=== PATIENT | female | born 1960 | race Two or more races ===

== ENCOUNTER 2021-12-02 14:41 | Emergency (ER) | payer SELFPAY ==
[2021-12-02] MEDS ORDERED: Sodium Chloride 0.9% 10 ML Syringe FLUSH PRN (15:15)
[2021-12-02] MEDS ORDERED: Aspirin 81 MG Tab.Chew PO ONE (15:15)
[2021-12-02] MEDS ORDERED: Ketorolac 30 MG/ML SDV IVPUSH ONE (15:55)
[2021-12-02 17:35] LABS: CORONAVIRUS COVID-19 NAA NEGATIVE (NEGATIVE)
== END 2021-12-02 18:10 | disposition home or self-care (01) ==
LOC: JD.ED 14:41
DX: R07.89 Other chest pain (principal); R60.0 Localized edema; Z87.891 Personal history of nicotine dependence; Z20.822 Contact with and (suspected) exposure to COVID-19
CPT/HCPCS: 0241U; 36415; 71045; 80053; 83880; 84484; 85025; 85379; 93005; 96374; 99285; A9270; J1885; J3490

== ENCOUNTER 2022-07-30 10:06 | Emergency (ER) | payer MEDICAID ==
[2022-07-30] MEDS ORDERED: Sodium Chloride 0.9% 10 ML Syringe FLUSH PRN (10:18)
[2022-07-30] MEDS ORDERED: HYDROmorphone 1 MG/ML Syringe IM ONE (11:08)
[2022-07-30 11:15] LABS: ESTIMATED GFR 103 mL/min (>60)
[2022-07-30] MEDS ORDERED: HYDROmorphone 0.5 MG/0.5 ML Syringe IVPUSH ONE (11:21)
[2022-07-30] MEDS ORDERED: Naproxen 500 MG Tab PO ONE (12:05)
[2022-07-30] MEDS ORDERED: Acetaminophen/HYDROcodone 325-5 MG Tab PO ONE (12:05)
== END 2022-07-30 13:04 | disposition home or self-care (01) ==
LOC: JD.ED 10:06
DX: R07.89 Other chest pain (principal); K08.89 Other specified disorders of teeth and supporting structures; I10 Essential (primary) hypertension; Z79.899 Other long term (current) drug therapy
CPT/HCPCS: 36415; 80053; 84484; 85025; 85379; 86140; 93005; 96374; 99283; A9270; J1170; J3490

== ENCOUNTER 2022-10-27 05:38 | Emergency (ER) | payer MEDICAID ==
[2022-10-27] MEDS ORDERED: Acetaminophen/HYDROcodone 325-10 MG Tab PO ONE (06:27)
== END 2022-10-27 06:43 | disposition home or self-care (01) ==
LOC: JD.ED 05:38
DX: K04.7 Periapical abscess without sinus (principal); K02.9 Dental caries, unspecified; I10 Essential (primary) hypertension
CPT/HCPCS: 99282; A9270

== ENCOUNTER 2025-04-27 11:42 | Emergency (ER) | payer MEDICAID ==
[2025-04-27] MEDS: Fluorescein 1 MG Ophth Strip EYEBOTH STA (12:15)
== END 2025-04-27 13:00 | disposition home or self-care (01) ==
LOC: JD.ED 11:42
DX: H57.89 Other specified disorders of eye and adnexa (principal); I10 Essential (primary) hypertension; E11.9 Type 2 diabetes mellitus without complications; Z87.891 Personal history of nicotine dependence
CPT/HCPCS: 99283